=== PATIENT | female | born 1960 | race Caucasian/White ===

== ENCOUNTER → 2018-09-14 | Day surgery (SDC) | payer OTHER ==
[~2018-09-14] MED LIST: ASPIR 8181 MG PO; ATORVASTATIN CA20 MG PO; CINNAMON500 MG PO; FENTANYL CITRATE/PF 100MCG/2 ML INJ ONE; JANUMET XR 1001 EACH PO; LIDOCAINE HCL 2% LOCAL INJ 5 ML SDV VIAL INJ ONE; LISINOPRIL-HCT1 EAC2 PO; MIDAZOLAM HCL 2 MG/2 ML VIAL ONE; MULTI-VITAMIN1 EACH PO; PROPOFOL IV EMULSION 10 MG/ML 50 ML VIAL ONE; VERAPAMIL ER120 MG PO; VIT B PO; VIT D PO; ZYRTEC-D TABLE1 EACH PO
--- OUTSIDE RECORDS SUMMARY | 2018-09-14 11:13 | XMS REPORT | Clinical Summary ---
Author Author [facility] Address Unknown Phone Unavailable Care Team Providers Care Associate Professor Of Economics Name Role Phone Kanu Zamora MD PCP Allergies No Known Allergies Medications End Date Status Medication Sig Dispensed Refills Start Date Active atorvastatin (LIPITOR) 20 0 MG tablet 8 Active JANUMET XR 100-1,000 mg 0 tablet, ER multiphase 24 8 hr Active AFLURIA QUAD 8786-4328, ADM 0.5ML IM 0 PF, 60 mcg/0.5 mL syringe UTD 8 Active LISINOPRIL ORAL Take by 0 mouth. Active verapamil HCl (VERAPAMIL Take by 0 ORAL) mouth. 07/25/2018 Discontinued diazePAM (VALIUM) 5 MG Take 1 tablet 1 tablet 0 tablet (5 mg total) 9 by mouth once for 1 dose. 07/25/2018 diazePAM (VALIUM) 5 MG Take 1 tablet 1 tablet 0 tablet (5 mg total) 9 by mouth once for 1 dose. Active Problems No known active problems Encounters Care Team Description Date Type Specialty Irasema Solares MD Status post breast biopsy 08/09/2018 Hospital Radiology Encounter Irasema Solares MD Abnormal findings on diagnostic imaging of breast 08/09/2018 Hospital Radiology Encounter Ashleigh Higgins 08/06/2018 Telephone Radiology Irasema Solares MD Status post biopsy 07/26/2018 Hospital Radiology Encounter Irasema Solares MD Abnormal findings on diagnostic imaging of breast 07/26/2018 Hospital Radiology Encounter Irasema Solares MD Abnormal findings on diagnostic imaging of breast (Primary Dx) 07/26/2018 Transcribe Access Orders Irasema Solares MD 07/25/2018 Orders Only Obstetrics and Gynecology Irasema Solares MD 07/23/2018 Telephone Obstetrics and Gynecology Irasema Solares MD Breast asymmetry; Abnormal mammogram of left breast 07/19/2018 Hospital Radiology Encounter Irasema Solares MD Breast asymmetry; Abnormal mammogram of left breast 07/19/2018 Hospital Radiology Encounter Irasema Solares MD Abnormal findings on diagnostic imaging of breast (Primary Dx) 07/19/2018 Transcribe Access Orders Irasema Solares MD Breast asymmetry (Primary Dx); Abnormal mammogram of left breast 07/16/2018 Telephone Obstetrics and Gynecology Irasema Solares MD Pap smear for cervical cancer screening (Primary Dx); Abnormal uterine bleeding 07/15/2018 Office Visit Obstetrics and Gynecology Irasema Solares MD 07/15/2018 Hospital Radiology Encounter Irasema Solares MD 07/10/2018 Telephone Obstetrics and Gynecology Irasema Solares MD Screening breast examination 07/04/2018 Hospital Radiology Encounter Irasema Solares MD Screening breast examination (Primary Dx) 05/06/2018 Transcribe Access Orders after 09/13/2017 Family History Medical History Relation Name Comments Hypertension Maternal Aunt Hypertension Maternal Grandfather Diabetes Mother Relation Name Status Comments Maternal Aunt Maternal Grandfather Mother Social History Date Tobacco Use Types Packs/Day Years Used Light Tobacco Smoker Cigarettes 0.25 Smokeless Tobacco: Never Used Alcohol Use Drinks/Week oz/Week Comments Yes 6 Glasses of couple of glasses 2 or 3 times a week wine Sex Assigned at Date Recorded Not on file Industry Job Start Date Occupation Not on file Not on file Not on file Travel End Travel History Travel Start No recent travel history available. Last Filed Vital Signs Time Taken Vital Sign Reading 07/15/2018 2:43 PM [employer]LOBAL MARKETING OPERATIONS MANAGER Blood Pressure 134/86 07/15/2018 2:43 PM GLOBAL MARKETING OPERATIONS MANAGER Pulse 76 - Temperature - - Respiratory Rate - - Oxygen Saturation - - Inhaled Oxygen - Concentration 07/15/2018 2:43 PM [employer]LO[employer] MARKETING OPERATIONS MANAGER Weight 76.5 kg (168 lb 9.6 oz) 07/15/2018 2:43 PM GLOBAL MARKETING OPERATIONS MANAGER Height 165.1 cm (5' 5") 07/15/2018 2:43 PM GLOBAL MARKETING OPERATIONS MANAGER Body Mass Index 28.06 Plan of Treatment Care Team Description Date Type Specialty Irasema Solares MD [address] [facility] [address] [place], [place] [id number] 07/18/2019 Office Visit Obstetrics and Gynecology Health Maintenance Due Date Last Done Comments DIABETIC RETINAL EYE EXAM 1962 DIABETIC FOOT EXAM 1972 URINE MICROALBUMIN 1972 CERVICAL CANCER SCREENING 1983 COLON CANCER SCREENING 2012 SHINGLES VACCINES (#1) 2012 INFLUENZA VACCINE 02/06/2018 BREAST CANCER SCREENING 07/26/2020 07/26/2018, 07/19/2018, 07/19/2018, Additional history exists Procedures Comments Procedure Name Priority Date/Time Associated Diagnosis STEREOTACTIC BREAST Routine 08/09/2018 Abnormal findings on BIOPSY LEFT 9:02 AM GLOBAL MARKETING OPERATIONS MANAGER diagnostic imaging of breast MAMMO DIAGNOSTIC BIOPSY Routine 08/09/2018 Status post breast biopsy FOLLOW UP (NO CHARGE) 8:55 AM [employer]BAL MARKETING OPERATIONS MANAGER SURGICAL PATHOLOGY Routine 08/09/2018 REQUEST 8:34 AM [employer]LOBAL MARKETING OPERATIONS MANAGER MAMMO DIAGNOSTIC W CAD Routine 07/26/2018 Status post biopsy LEFT 8:44 AM GLOBAL MARKETING OPERATIONS MANAGER US BREAST BIOPSY LEFT Routine 07/26/2018 Abnormal findings on 8:20 AM GLOBAL MARKETING OPERATIONS MANAGER diagnostic imaging of breast SURGICAL PATHOLOGY Routine 07/26/2018 REQUEST 8:00 AM GLOBAL MARKETING OPERATIONS MANAGER US BREAST COMPLETE LEFT Routine 07/19/2018 Breast asymmetry 3:24 PM GLO[employer] MARKETING OPERATIONS MANAGER Abnormal mammogram of left breast MAMMO BREAST DIAGNOSTIC Routine 07/19/2018 Breast asymmetry TOMOSYNTHESIS LEFT 2:46 PM GLOBAL MARKETING OPERATIONS MANAGER Abnormal mammogram of left breast FOLLICLE STIMULATING Routine 07/15/2018 Abnormal uterine bleeding HORMONE 3:39 PM GLOBAL MARKETING OPERATIONS MANAGER THINPREP TIS PAP RFX HPV Routine 07/15/2018 Pap smear for cervical 3:28 PM GLO[employer] MARKETING OPERATIONS MANAGER cancer screening MAMMO BREAST SCREEN Routine 07/04/2018 Screening breast TOMOSYNTHESIS BILATERAL 12:33 PM GLOBAL MARKETING OPERATIONS MANAGER examination after 09/13/2017 Results * Stereotactic Breast Biopsy Left (08/09/2018 9:02 AM GLOBAL MARKETING OPERATIONS MANAGER) Addenda Addendum by Mariel De Los Santos MD on 08/13/2018 8:02 AM ADDENDUM #1 Final pathology results of the left breast stereotactic biopsy, upper outer quadrant, are sclerosing adenosis, microcystic change. Microcalcifications, calcium phosphate type, associated with sclerosing adenosis and microcystic change. No atypical hyperplasia or carcinoma identified.The pathology results are benign and concordant with imaging findings. Follow-up recommendation is for screening mammogram in June 2019. No post-biopsy complications were reported. These benign results will be discussed with the patient by our breast center navigator. Narrative Performed At PROCEDURE: STEREOTACTIC BREAST BIOPSY LEFT, MAMMO DIAGNOSTIC BIOPSY FOLLOW UP [facility] 08/09/2018 8:00 AM PATIENT:SUBHA OSORIO; 58 years; Female INDICATION: Patient presents with an asymmetry with possible distortion in the upper outer position of the left breast. PROCEDURE: Indications, risks, and alternatives to the procedure were explained in detail to the patient; the patient understood and agreed to proceed. Using sterile technique, local anesthetic and stereotactic guidance, a small incision was made and a 9-gauge Merus vacuum assisted biopsy probe was placed with the cutting chamber immediately adjacent to the lesion.Multiple cores were obtained and submitted for histologic evaluation.A collagen plug with a radiopaque marker was placed at the biopsy site post procedure. Pathologic findings are pending at the time of dictation. On post-biopsy mammogram, there is appropriate sampling of the lesion and marker is in good position. A barrel-shaped clip was utilized for this procedure. The procedure was completed without any apparent complication; good hemostasis was obtained, and the patient was discharged in good condition having received written discharge instructions. IMPRESSION: 1. Stereotactic core biopsy left breast focal asymmetry with possible distortion, upper outer quadrant.Pathology pending. 2. Placement of biopsy marking clip (barrel clip), appropriately positioned. This facility is accredited by [employer] for [employer]ammography. A negative x-ray report should not delay biopsy if a dominant or clinically suspicious mass is present. Not all cancers are identified by x-ray. [email or web address] Performing Organization Address City/State/Zipcode Phone Number [facility] [address] [place] [address] * Mammo Diagnostic Biopsy Follow Up (No Charge) (08/09/2018 8:55 AM GLOBAL MARKETING OPERATIONS MANAGER) Addenda Addendum by Mariel De Los Santos MD on 08/13/2018 8:02 AM ADDENDUM #1 Final pathology results of the left breast stereotactic biopsy, upper outer quadrant, are sclerosing adenosis, microcystic change. Microcalcifications, calcium phosphate type, associated with sclerosing adenosis and microcystic change. No atypical hyperplasia or carcinoma identified.The pathology results are benign and concordant with imaging findings. Follow-up recommendation is for screening mammogram in June 2019. No post-biopsy complications were reported. These benign results will be discussed with the patient by our breast center navigator. Narrative Performed At PROCEDURE: STEREOTACTIC BREAST BIOPSY LEFT, MAMMO DIAGNOSTIC [facility]SY [facility] 08/09/2018 8:00 AM PATIENT:SUBHA OSORIO; 58 years; Female INDICATION: Patient presents with an asymmetry with possible distortion in the upper outer position of the left breast. PROCEDURE: Indications, risks, and alternatives to the procedure were explained in detail to the patient; the patient understood and agreed to proceed. Using sterile technique, local anesthetic and stereotactic guidance, a small incision was made and a 9-gauge Merus vacuum assisted biopsy probe was placed with the cutting chamber immediately adjacent to the lesion.Multiple cores were obtained and submitted for histologic evaluation.A collagen plug with a radiopaque marker was placed at the biopsy site post procedure. Pathologic findings are pending at the time of dictation. On post-biopsy mammogram, there is appropriate sampling of the lesion and marker is in good position. A barrel-shaped clip was utilized for this procedure. The procedure was completed without any apparent complication; good hemostasis was obtained, and the patient was discharged in good condition having received written discharge instructions. IMPRESSION: 1. Stereotactic core biopsy left breast focal asymmetry with possible distortion, upper outer quadrant.Pathology pending. 2. Placement of biopsy marking clip (barrel clip), appropriately positioned. This facility is accredited by [employer] for Mammography. A negative x-ray report should not delay biopsy if a dominant or clinically suspicious mass is present. Not all cancers are identified by x-ray. [email or web address] Procedure Note Interface, Radiology Results Incoming - 08/09/2018 10:44 AM GLOBAL MARKETING OPERATIONS MANAGER PROCEDURE: STEREOTACTIC BREAST BIOPSY LEFT, MAMMO DIAGNOSTIC BIOPSY FOLLOW UP 08/09/2018 8:00 AM PATIENT: SUBHA OSORIO; 58 years; Female INDICATION: Patient presents with an asymmetry with possible distortion in the upper outer position of the left breast. PROCEDURE: Indications, risks, and alternatives to the procedure were explained in detail to the patient; the patient understood and agreed to proceed. Using sterile technique, local anesthetic and stereotactic guidance, a small incision was made and a 9-gauge Merus vacuum assisted biopsy probe was placed with the cutting chamber immediately adjacent to the lesion. Multiple cores were obtained and submitted for histologic evaluation. A collagen plug with a radiopaque marker was placed at the biopsy site post procedure. Pathologic findings are pending at the time of dictation. On post-biopsy mammogram, there is appropriate sampling of the lesion and marker is in good position. A barrel-shaped clip was utilized for this procedure. The procedure was completed without any apparent complication; good hemostasis was obtained, and the patient was discharged in good condition having received written discharge instructions. IMPRESSION: 1. Stereotactic core biopsy left breast focal asymmetry with possible distortion, upper outer quadrant. Pathology pending. 2. Placement of biopsy marking clip (barrel clip), appropriately positioned. This facility is accredited by [employer] for Mammography. A negative x-ray report should not delay biopsy if a dominant or clinically suspicious mass is present. Not all cancers are identified by x-ray. [email or web address] Performing Organization Address City/State/Zipcode Phone Number [facility] [address] [place] [address] * Surgical pathology request (08/09/2018 8:34 AM GLOBAL MARKETING OPERATIONS MANAGER) Only the most recent of 2 results within the time period is included. [facility] DEPARTMENT OF PATHOLOGY AND GENOMIC MEDICINE Surgical pathology report See link below for PDF Lab [facility] DEPARTMENT OF Report PATHOLOGY AND GENOMIC MEDICINE Result status This is Final Report for [facility] DEPARTMENT OF [id number] PATHOLOGY AND GENOMIC MEDICINE Performing Organization Address City/State/Zipcode Phone Number [facility] [address] [place] [address] PATHOLOGY AND GENOMIC MEDICINE * Mammo Diagnostic w Cad Left (07/26/2018 8:44 AM GLOBAL MARKETING OPERATIONS MANAGER) Addenda Addendum by Hansel Packer MD on 08/06/2018 2:53 PM ADDENDUM #1 Pathology from the ultrasound-guided core needle biopsy of the left breast is reported by Dr. Aletha Chau as predominant fibrofatty breast tissue with lobular atrophy. For complete findings please see Dr. Chau's report. This benign histology is concordant with imaging appearance. Following biopsy and clip placement there was mammographic sonographic discordance. This was discussed with the patient at the time of the mammogram as was the recommendation for stereotactic guided biopsy of the persistent mammographic architectural distortion. Narrative Performed At PROCEDURE: US BREAST BIOPSY LEFT, MAMMO DIAGNOSTIC W CAD LEFT [facility] HISTORY: 58-year-old patient with a 0.8 cm architectural distortion at the 3:00 position of the left breast possibly corresponding to an architectural distortion seen on mammogram best visible on the true lateral tomosynthesis slices. CONSENT:Informed consent for ultrasound guided core needle biopsy of the left breast was obtained following a detailed discussion of the procedure, alternatives, risks, and complications including hemorrhage, infection, and clip migration. TECHNIQUE:A time out was performed by the team prior to the procedure to verify the patient identity, lesion site(s), and pathology specimen labels. The ultrasound guided core needle biopsy was performed with a 12-gauge core biopsy needle under the usual aseptic conditions and 1% lidocaine with and without epinephrine local anesthetic.4 core samples were obtained and submitted to pathology.A twirl shaped metal tissue marker was deployed at the biopsy site. The patient tolerated the procedure well without complications. FINDINGS:Post biopsy CC and LM mammographic views of the left breast demonstrates mammographic sonographic discordance and persistence of the previously visible architectural distortion in the upper left breast best seen on true lateral tomosynthesis views. IMPRESSION: 1. Technically successful ultrasound guided core needle biopsy of the left breast. Awaiting final histology. 2. Recommend stereotactic guided core needle biopsy of the persistent mammographic architectural distortion in the left breast. BI-RADS 4: Suspicious Findings and recommendations discussed with the patient following the biopsy. [email or web address] Procedure Note Interface, Radiology Results Incoming - 07/26/2018 9:12 AM GLOBAL MARKETING OPERATIONS MANAGER PROCEDURE: US BREAST BIOPSY LEFT, MAMMO DIAGNOSTIC W CAD LEFT HISTORY: 58-year-old patient with a 0.8 cm architectural distortion at the 3:00 position of the left breast possibly corresponding to an architectural distortion seen on mammogram best visible on the true lateral tomosynthesis slices. CONSENT: Informed consent for ultrasound guided core needle biopsy of the left breast was obtained following a detailed discussion of the procedure, alternatives, risks, and complications including hemorrhage, infection, and clip migration. TECHNIQUE: A time out was performed by the team prior to the procedure to verify the patient identity, lesion site(s), and pathology specimen labels. The ultrasound guided core needle biopsy was performed with a 12-gauge core biopsy needle under the usual aseptic conditions and 1% lidocaine with and without epinephrine local anesthetic. 4 core samples were obtained and submitted to pathology. A twirl shaped metal tissue marker was deployed at the biopsy site. The patient tolerated the procedure well without complications. FINDINGS: Post biopsy CC and LM mammographic views of the left breast demonstrates mammographic sonographic discordance and persistence of the previously visible architectural distortion in the upper left breast best seen on true lateral tomosynthesis views. IMPRESSION: 1. Technically successful ultrasound guided core needle biopsy of the left breast. Awaiting final histology. 2. Recommend stereotactic guided core needle biopsy of the persistent mammographic architectural distortion in the left breast. BI-RADS 4: Suspicious Findings and recommendations discussed with the patient following the biopsy. [email or web address] Performing Organization Address City/State/Zipcode Phone Number [facility] [address] [place] [address] * US Breast Biopsy Left (07/26/2018 8:20 AM GLOBAL MARKETING OPERATIONS MANAGER) Addenda Addendum by Hansel Packer MD on 08/06/2018 2:53 PM ADDENDUM #1 Pathology from the ultrasound-guided core needle biopsy of the left breast is reported by Dr. Aletha Chau as predominant fibrofatty breast tissue with lobular atrophy. For complete findings please see Dr. Chau's report. This benign histology is concordant with imaging appearance. Following biopsy and clip placement there was mammographic sonographic discordance. This was discussed with the patient at the time of the mammogram as was the recommendation for stereotactic guided biopsy of the persistent mammographic architectural distortion. Narrative Performed At PROCEDURE: US BREAST BIOPSY LEFT, MAMMO DIAGNOSTIC W CAD LEFT [facility] HISTORY: 58-year-old patient with a 0.8 cm architectural distortion at the 3:00 position of the left breast possibly corresponding to an architectural distortion seen on mammogram best visible on the true lateral tomosynthesis slices. CONSENT:Informed consent for ultrasound guided core needle biopsy of the left breast was obtained following a detailed discussion of the procedure, alternatives, risks, and complications including hemorrhage, infection, and clip migration. TECHNIQUE:A time out was performed by the team prior to the procedure to verify the patient identity, lesion site(s), and pathology specimen labels. The ultrasound guided core needle biopsy was performed with a 12-gauge core biopsy needle under the usual aseptic conditions and 1% lidocaine with and without epinephrine local anesthetic.4 core samples were obtained and submitted to pathology.A twirl shaped metal tissue marker was deployed at the biopsy site. The patient tolerated the procedure well without complications. FINDINGS:Post biopsy CC and LM mammographic views of the left breast demonstrates mammographic sonographic discordance and persistence of the previously visible architectural distortion in the upper left breast best seen on true lateral tomosynthesis views. IMPRESSION: 1. Technically successful ultrasound guided core needle biopsy of the left breast. Awaiting final histology. 2. Recommend stereotactic guided core needle biopsy of the persistent mammographic architectural distortion in the left breast. BI-RADS 4: Suspicious Findings and recommendations discussed with the patient following the biopsy. [email or web address] Procedure Note Hm Interface, Radiology Results Incoming - 07/26/2018 9:12 AM GLOBAL MARKETING OPERATIONS MANAGER PROCEDURE: US BREAST BIOPSY LEFT, MAMMO DIAGNOSTIC W CAD LEFT HISTORY: 58-year-old patient with a 0.8 cm architectural distortion at the 3:00 position of the left breast possibly corresponding to an architectural distortion seen on mammogram best visible on the true lateral tomosynthesis slices. CONSENT: Informed consent for ultrasound guided core needle biopsy of the left breast was obtained following a detailed discussion of the procedure, alternatives, risks, and complications including hemorrhage, infection, and clip migration. TECHNIQUE: A time out was performed by the team prior to the procedure to verify the patient identity, lesion site(s), and pathology specimen labels. The ultrasound guided core needle biopsy was performed with a 12-gauge core biopsy needle under the usual aseptic conditions and 1% lidocaine with and without epinephrine local anesthetic. 4 core samples were obtained and submitted to pathology. A twirl shaped metal tissue marker was deployed at the biopsy site. The patient tolerated the procedure well without complications. FINDINGS: Post biopsy CC and LM mammographic views of the left breast demonstrates mammographic sonographic discordance and persistence of the previously visible architectural distortion in the upper left breast best seen on true lateral tomosynthesis views. IMPRESSION: 1. Technically successful ultrasound guided core needle biopsy of the left breast. Awaiting final histology. 2. Recommend stereotactic guided core needle biopsy of the persistent mammographic architectural distortion in the left breast. BI-RADS 4: Suspicious Findings and recommendations discussed with the patient following the biopsy. [email or web address] Performing Organization Address City/State/Zipcode Phone Number [facility] [address] [place] [address] * US Breast Complete Left (07/19/2018 3:24 PM GLOBAL MARKETING OPERATIONS MANAGER) Narrative Performed At PROCEDURE: MAMMO BREAST DIAGNOSTIC TOMOSYNTHESIS LEFT, US BREAST COMPLETE LEFT [facility] Left real-time whole breast sonography included all four quadrants and the retroareolar region under close supervision by the radiologist. Computer aided detection with tomosynthesis was utilized for the interpretation. HISTORY:58-year-old asymptomatic patient recalled from screening mammogram for distortion in the upper outer left breast. COMPARISON: 07/04/2018 through 01/30/2014 DENSITY: There are scattered areas of fibroglandular density. FINDINGS: Two adjacent circumscribed oval low-density masses in the outer left breast are unchanged since 2013 consistent with benign findings. Spot compression magnification views and tomosynthesis slices in the upper outer left breast demonstrates a 1.4 cm architectural distortion at the left breast 2:00 position at posterior depth. ULTRASOUND: Unilateral left whole breast sonography demonstrates 2 adjacent circumscribed oval low-density masses measuring 0.5 and 0.8 cm. These represent sonographic correlates to mammographically stable masses seen on mammogram. At the left breast 2:00 position 11 cm from the nipple is a 0.8 x 0.8 x 0.4 cm hypoechoic architectural distortion that represents a sonographic correlate to the architectural distortion seen on mammogram. Transverse and longitudinal sonographic images of the left axilla demonstrate only morphologically normal lymph nodes. IMPRESSION: 1. A 0.8 cm architectural distortion at the 2 o'clock position of the left breast represents a sonographic correlate to the distortion seen on mammogram. 2. Sonographically negative left axillary lymph node chain. RECOMMENDATION: Recommend ultrasound guided core needle biopsy of the left breast with clip placement to ensure mammographic sonographic correlation Findings and recommendations discussed with the patient at the time of the breast ultrasound. BI-RADS 4: SUSPICIOUS This facility is accredited by the [employer] for Mammography. A negative x-ray report should not delay biopsy if a dominant or clinically suspicious mass is present.Not all cancers are identified by x-ray. [id number] Performing Organization Address City/State/[facility] Phone Number AKANKSHA GIBSON [address] [place] [address] * Mammo Breast Diagnostic Tomosynthesis Left (07/19/2018 2:46 PM GLOBAL MARKETING OPERATIONS MANAGER) Narrative Performed At PROCEDURE: MAMMO BREAST DIAGNOSTIC TOMOSYNTHESIS LEFT, US BREAST COMPLETE LEFT ARTHUR Left real-time whole breast sonography included all four quadrants and the retroareolar region under close supervision by the radiologist. Computer aided detection with tomosynthesis was utilized for the interpretation. HISTORY:58-year-old asymptomatic patient recalled from screening mammogram for distortion in the upper outer left breast. COMPARISON: 07/04/2018 through 01/30/2014 DENSITY: There are scattered areas of fibroglandular density. FINDINGS: Two adjacent circumscribed oval low-density masses in the outer left breast are unchanged since 2014 consistent with benign findings. Spot compression magnification views and tomosynthesis slices in the upper outer left breast demonstrates a 1.4 cm architectural distortion at the left breast 2:00 position at posterior depth. ULTRASOUND: Unilateral left whole breast sonography demonstrates 2 adjacent circumscribed oval low-density masses measuring 0.5 and 0.8 cm. These represent sonographic correlates to mammographically stable masses seen on mammogram. At the left breast 2:00 position 11 cm from the nipple is a 0.8 x 0.8 x 0.4 cm hypoechoic architectural distortion that represents a sonographic correlate to the architectural distortion seen on mammogram. Transverse and longitudinal sonographic images of the left axilla demonstrate only morphologically normal lymph nodes. IMPRESSION: 1. A 0.8 cm architectural distortion at the 2 o'clock position of the left breast represents a sonographic correlate to the distortion seen on mammogram. 2. Sonographically negative left axillary lymph node chain. RECOMMENDATION: Recommend ultrasound guided core needle biopsy of the left breast with clip placement to ensure mammographic sonographic correlation Findings and recommendations discussed with the patient at the time of the breast ultrasound. BI-RADS 4: SUSPICIOUS This facility is accredited by the [employer] for Mammography. A negative x-ray report should not delay biopsy if a dominant or clinically suspicious mass is present.Not all cancers are identified by x-ray. [id number] Performing Organization Address [facility] Cent[facility]ode Phone Number AKANKSHA GIBSON [address] [place] [address] * Follicle stimulating hormone (07/15/2018 3:39 PM GLOBAL MARKETING OPERATIONS MANAGER) Follicle stimulating 55.2 mIU/mL [employer] hormone Comment: [place] Reference Range Follicular Phase 2.5-10.2 Mid-cycle Peak 3.1-17.7 Luteal Phase 1.5- 9.1 Postmenopausal 23.0-116.3 Specimen Blood Resulting Agency Comment Performing Organization Information: Site ID: [id number] Name: [facility] Address: [address] [place] [id number] Director: Sandy Byrnes Performing Organization Address [facility] [place] [address] * THINPREP TIS PAP RFX HPV (07/15/2018 3:28 PM GLOBAL MARKETING OPERATIONS MANAGER) Clinical information None given [facility] [place] Date of last menstrual NONE GIVEN [facility] period [place] Prev. pap: NONE GIVEN [facility] [place] Prev. bx: NONE GIVEN [facility] [place] Source None given [facility] [place] Statement of adequacy Comment: [facility] Satisfactory for evaluation. [place] Endocervical/transformation zone component present. Partially obscuring inflammation Interpretation/result: Comment: Negative for [employer] intraepithelial lesion or [place] malignancy. Comment Comment: [facility] This case could not be [place] evaluated with computer assisted technology. The slide was manually screened according to routine procedures. Fabric Separator Operator Comment: [employer] [facility], CT(ASCP) [place] CT screening location: [place] [id number] Comment Comment: [employer] EXPLANATORY NOTE: [place] The Pap is a screening test for cervical cancer. It is not a diagnostic test and is subject to false negative and false positive results. It is most reliable when a satisfactory sample, regularly obtained, is submitted with relevant clinical findings and history, and when the Pap result is evaluated along with historic and current clinical information. Specimen Cervical Resulting Agency Comment Performing Organization Information: Site ID: [id number] Name: [email or web address] Address: [address] [place] [id number] Director: Sandy Byrnes Performing Organization Address [facility] Cent[facility]ode Phone Number [facility] [place] [address] * Mammo Breast Screen Tomosynthesis Bilateral (07/04/2018 12:33 PM GLOBAL MARKETING OPERATIONS MANAGER) Addenda Addendum by Sarai Mead MD on 07/15/2018 4:26 PM ADDENDUM #1 Outside mammogram dated 01/30/2014 performed at [facility] [place] [address], [place] [address] has been submitted for comparison. The focal asymmetry in the left upper outer breast at middle depth with possible associated architectural distortion represents a change from prior mammograms. The oval mass/group of masses in the left superior outer breast at middle depth is/are stable since 2014 mammogram and presumed benign. There has been no significant interval change in the right breast. IMPRESSION: 1. Left breast focal asymmetry with possible associated architectural distortion. 2. No mammographic evidence of malignancy in the right breast. RECOMMENDATION: Left diagnostic mammogram and left breast ultrasound. BI-RADS 0: INCOMPLETE - Need Additional Imaging Evaluation Narrative Performed At PROCEDURE: MAMMO BREAST SCREEN TOMOSYNTHESIS BILATERAL [employer] Computer aided detection was utilized for the interpretation of the digital bilateral screening mammography with tomosynthesis. COMPARISON: None available CLINICAL HISTORY: Screening mammogram.The patient has no current breast complaints. DENSITY: There are scattered areas of fibroglandular density. There are scattered benign-appearing coarse and skin calcifications in both breasts. There is a focal asymmetry in the left upper outer breast at middle depth with possible associated architectural distortion. There is an oval mass/group of masses in the left superior outer breast at middle depth which may represent an intramammary lymph node but requires additional evaluation. No significant masses, calcifications, or other findings are seen in the right breast. IMPRESSION: 1. Left breast focal asymmetry with possible associated architectural distortion and left breast mass/masses. 2. No mammographic evidence of malignancy in the right breast. RECOMMENDATION: Comparison prior imaging. If prior images are not available within a 3 week timeframe, recommend left diagnostic mammogram and left breast ultrasound. BI-RADS 0: INCOMPLETE - Need Additional Imaging Evaluation and/or Prior Mammograms for Comparison This facility is accredited by the [employer] for Mammography. A negative x-ray report should not delay biopsy if a dominant or clinically suspicious mass is present.Not all cancers are identified by x-ray. DWS01 Procedure Note Interface, Radiology Results Incoming - 07/04/2018 3:52 PM GLOBAL MARKETING OPERATIONS MANAGER PROCEDURE: MAMMO BREAST SCREEN TOMOSYNTHESIS BILATERAL Computer aided detection was utilized for the interpretation of the digital bilateral screening mammography with tomosynthesis. COMPARISON: None available CLINICAL HISTORY: Screening mammogram.The patient has no current breast complaints. DENSITY: There are scattered areas of fibroglandular density. There are scattered benign-appearing coarse and skin calcifications in both breasts. There is a focal asymmetry in the left upper outer breast at middle depth with possible associated architectural distortion. There is an oval mass/group of masses in the left superior outer breast at middle depth which may represent an intramammary lymph node but requires additional evaluation. No significant masses, calcifications, or other findings are seen in the right breast. IMPRESSION: 1. Left breast focal asymmetry with possible associated architectural distortion and left breast mass/masses. 2. No mammographic evidence of malignancy in the right breast. RECOMMENDATION: Comparison prior imaging. If prior images are not available within a 3 week timeframe, recommend left diagnostic mammogram and left breast ultrasound. BI-RADS 0: INCOMPLETE - Need Additional Imaging Evaluation and/or Prior Mammograms for Comparison This facility is accredited by the [employer] for Mammography. A negative x-ray report should not delay biopsy if a dominant or clinically suspicious mass is present. Not all cancers are identified by x-ray. [id number] Performing Organization Address City/State/Zipcode Phone Number [facility] [address] [place] [address] after 09/13/2017 Insurance Payer Benefit Subscriber ID Type Phone Address Plan / Group [employer] CIGNA OPEN xxxxxxxxx O ACCESS/NET WORK Advance Directives Patient has advance care planning documents on file. For more information, celeste shahid contact: Bong Alfonso [address] [place] [phone]
[2018-09-14 15:53] VITALS: BP 127/99
--- NOTE | 2018-09-15 08:59 | Operative Report ---
DATE OF PROCEDURE: 09/14/2018 SURGEON: Ousmane Soto MD PROCEDURE: Colonoscopy and polypectomy. INDICATIONS FOR COLONOSCOPY: Colorectal cancer screening. MEDICATIONS: The patient was done under MAC, please see anesthesiologist's note. PROCEDURE IN DETAIL: With the patient in the left lateral decubitus position, the flexible fiberoptic Olympus colonoscope was inserted into the rectum with ease and advanced all the way to the cecum. Mucosa overlying the cecum appeared to be within normal limits. Of note, the prep overall was suboptimal with some retained stools in the colon. The polyp was snared from the ascending colon. The transverse and descending grossly appeared to be within normal limits. A single diverticulum was noted in the sigmoid colon. One polyp was hot biopsied from the sigmoid and one polyp was hot biopsied from the rectum. The scope was then retroflexed into the distal rectum. Small internal hemorrhoids were noted, none of which was actively bleeding. The scope was then straightened out. It was subsequently withdrawn. The patient tolerated the procedure well. IMPRESSION: 1. Ascending colon polyp, snared. 2. Diverticulosis, minimal, sigmoid colon. 3. Sigmoid colon polyp, hot biopsied. 4. Rectal polyp, hot biopsied. 5. Internal hemorrhoids, none actively bleeding. PLAN: Followup histology. Initiate high-fiber and low-fat diet. Initiate high-fiber supplement. The patient might benefit from a followup colonoscopy in 3 years. Ousmane Soto MD [facility] [place][id number] cc: Kanu Zamora
== END | disposition home or self-care (01) ==
LOC: OR 11:10
PROVIDERS: ATTEND Internal Medicine Gastroenterology
DX: Z12.11 Encounter for screening for malignant neoplasm of colon (principal); E11.9 Type 2 diabetes mellitus without complications; I10 Essential (primary) hypertension; E78.00 Pure hypercholesterolemia, unspecified; Z71.6 Tobacco abuse counseling; F17.210 Nicotine dependence, cigarettes, uncomplicated; K64.8 Other hemorrhoids; K63.5 Polyp of colon; D12.2 Benign neoplasm of ascending colon; D12.8 Benign neoplasm of rectum
CPT/HCPCS: 36415; 45384; 45385; 82948; 93005; J2001; J2250; J2704

== ENCOUNTER → 2022-07-15 | Day surgery (SDC) | payer OTHER ==
[~2022-07-15] MED LIST changes: +AMBIEN10 MG PO; +GLUCAGON FOR INJ 1 MG VIAL ONE; +HYOSCYAMINE SULFATE 0.5 MG/ML INJ ONE; +LISINOPRIL-HCT1 EACH PO; +METFORMIN HCL500 MG PO; +OZEMPIC0.25 MG/0. SC; +PROPOFOL IV EMULSION 10 MG/ML 20 ML VIAL ONE; -PROPOFOL IV EMULSION 10 MG/ML 50 ML VIAL ONE; +SIMETHICONE 40 MG/0.6 ML BTL ONE; +VITAMIN C500 MG PO; +ZYRTEC10 MG
== END | disposition home or self-care (01) ==
LOC: OR 09:31
PROVIDERS: ATTEND Internal Medicine Gastroenterology
DX: Z09 Encounter for follow-up examination after completed treatment for conditions other than malignant neoplasm (principal); K63.5 Polyp of colon; K57.30 Diverticulosis of large intestine without perforation or abscess without bleeding; K64.8 Other hemorrhoids; E11.9 Type 2 diabetes mellitus without complications; I10 Essential (primary) hypertension; F17.290 Nicotine dependence, other tobacco product, uncomplicated; Z01.810 Encounter for preprocedural cardiovascular examination; Z79.82 Long term (current) use of aspirin; Z79.84 Long term (current) use of oral hypoglycemic drugs; Z79.85 Long-term (current) use of injectable non-insulin antidiabetic drugs; Z79.899 Other long term (current) drug therapy
CPT/HCPCS: 45380; 93005; J1610; J1980; J2001; J2250; J2704; J3010; 45378